=== PATIENT | female | born 1945 | race American Indian/Alaskan Native ===

== ENCOUNTER 2016-05-31 04:22 | Inpatient (IN) | payer MEDICARE ==
[2016-05-30 14:42] LABS: ASPARTATE AMINO TRANSFERASE 11 U/L (15-37); BLOOD UREA NITROGEN 11 mg/dL (7-18)
[~2016-05-31] VITALS: Ht 165.1 cm; Wt 71.7 kg
[~2016-05-31 04:22] MED LIST: ASPI-496 PO; ATOR40TA PO; GABA300C10 PO; HYDR-3138 PO; LISI40TA PO; METF500T4 PO; METO25TA35 PO
[2016-05-31] MEDS ORDERED: ALBUMIN HUMAN 5% 500 ML IV ONE (04:30)
[2016-05-31] MEDS ORDERED: METOPROLOL TARTRATE 25 MG TABLET PO ONE (05:00)
[2016-05-31] MEDS ORDERED: CHLORHEXIDINE MOUTHWASH 15 ML UDC MM SCH (05:00)
[2016-05-31] MEDS ORDERED: DO NOT GIVE MC SCH (05:00)
[2016-05-31] MEDS ORDERED: DO NOT GIVE XX SCH (05:00)
[2016-05-31] MEDS: MUPIROCIN OINT 2%, 22GM TP SCH ×2 (05:47→20:53)
[2016-05-31] MEDS ORDERED: INSULIN ASPART 100 UNITS/ML, PEN SQ-INSULIN SCH (06:00)
[2016-05-31 06:06] VITALS: BP_SYST 143; BP_SYST 154; BP_DIAS 85; BP_DIAS 87
[2016-05-31 07:07] VITALS: BP 134/80
[2016-05-31] MEDS ORDERED: MIDAZOLAM 10MG/2 ML ONE (07:20)
[2016-05-31] MEDS ORDERED: FENTANYL PF 1000 MCG/20ML ONE (07:20)
[2016-05-31] MEDS ORDERED: DEXMEDETOMIDINE 200 MCG in SODIUM CHLORIDE 0.9% 48 ML IV SCH (07:30)
[2016-05-31] MEDS ORDERED: VANCOMYCIN 1,100 MG in SODIUM CHLORIDE 0.9% 250 ML IV PRN (07:30)
[2016-05-31] MEDS ORDERED: REGULAR INSULIN 62.5 UNITS in SODIUM CHLORIDE 0.9% 249.375 ML IV PRN (07:30)
[2016-05-31] MEDS ORDERED: EPINEPHRINE 2 MG in SODIUM CHLORIDE 0.9% 248 ML IV SCH (07:30)
[2016-05-31] MEDS ORDERED: MANNITOL PMX 20% 500 ML IVPB PRN (07:30)
[2016-05-31] MEDS ORDERED: CEFUROXIME 1.5 GM in SODIUM CHLORIDE 0.9% 50 ML IVPB PRN (07:30)
[2016-05-31] MEDS ORDERED: POTASSIUM CHLORIDE 80 MEQ, SODIUM BICARBONATE 8.4% 10 MEQ, MAGNESIUM SULFATE 0.5 GM, LI... IV PRN (07:30)
[2016-05-31] MEDS ORDERED: PHENYLEPHRINE 10 MG in SODIUM CHLORIDE 0.9% 249 ML IV PRN ×2 (07:30→11:23)
[2016-05-31] MEDS ORDERED: ROCURONIUM 10 MG/ML ONE (08:06)
[2016-05-31] MEDS: SODIUM CHLORIDE FLUSH 10ML SYR IVF SCH ×3 (09:00→20:53)
[2016-05-31] MEDS ORDERED: HEPARIN 1,000 UNITS/ML, 10ML IV ONE (09:18)
[2016-05-31] MEDS ORDERED: PAPAVERINE 30 MG/ML, 2ML IVPush ONE (09:36)
[2016-05-31] MEDS ORDERED: SODIUM CHLORIDE 0.9% 1,000 ML IV PRN (11:23)
[2016-05-31] MEDS ORDERED: SODIUM CHLORIDE 0.9% 1,000 ML IV ONE (11:23)
[2016-05-31] MEDS ORDERED: NITROGLYCERIN/D5W PMX 250 ML IV PRN (11:23)
[2016-05-31] MEDS ORDERED: DEXMEDETOMIDINE 200 MCG in SODIUM CHLORIDE 0.9% 48 ML IV PRN (11:23)
[2016-05-31] MEDS ORDERED: DOBUTAMINE 250 MG in SODIUM CHLORIDE 0.9% 230 ML IV PRN (11:23)
[2016-05-31] MEDS ORDERED: MIDAZOLAM 1 MG/ML, 5ML IVPush PRN (11:30)
[2016-05-31] MEDS ORDERED: EPINEPHRINE 2 MG in SODIUM CHLORIDE 0.9% 248 ML IV PRN (11:30)
[2016-05-31] MEDS ORDERED: ACETAMINOPHEN 325 MG TABLET PO PRN (11:30)
[2016-05-31] MEDS ORDERED: DEXTROSE 4 GM TAB.CHEW PO PRN (11:30)
[2016-05-31] MEDS ORDERED: SODIUM BICARB 8.4%, 50ML SYRINGE IV PRN (11:30)
[2016-05-31] MEDS ORDERED: BISACODYL 10 MG SUPP PR PRN (11:30)
[2016-05-31] MEDS ORDERED: LACTATED RINGERS 500 ML IVBOLUS PRN (11:30)
[2016-05-31] MEDS ORDERED: GLUCAGON 1 MG IM PRN (11:30)
[2016-05-31] MEDS ORDERED: DEXTROSE 50%, 50ML SYRINGE IVPush PRN (11:30)
[2016-05-31] MEDS ORDERED: PROCHLORPERAZINE 5 MG/ML, 2ML IVPush PRN (11:30)
[2016-05-31] MEDS: KSCALE TO 4.5 IV SCH ×3 (11:30→23:30)
[2016-05-31] MEDS ORDERED: MEPERIDINE/PF 25MG/0.5ML IVPush PRN (11:30)
[2016-05-31] MEDS ORDERED: ACETAMINOPHEN 650 MG SUPP PR PRN (11:30)
[2016-05-31] MEDS ORDERED: BISACODYL 5 MG EC TABLET PO PRN (11:30)
[2016-05-31 11:58] LABS: ABG COLLECTION SITE ARTERIAL LINE
[2016-05-31] MEDS: morphine SULFATE 10 MG/ML, 1ML IVPush PRN ×3 (12:13→17:52)
[2016-05-31] MEDS ORDERED: ALBUMIN HUMAN 25% 50 ML ONE (12:18)
[2016-05-31] MEDS ORDERED: SODIUM BICARB 8.4%, 50ML SYRINGE ONE (12:18)
[2016-05-31] MEDS ORDERED: HEPARIN 1,000 UNITS/ML, 30ML ONE (12:19)
[2016-05-31] MEDS ORDERED: LIDOCAINE 2% 100MG/5ML SYRINGE ONE (12:19)
[2016-05-31] MEDS ORDERED: methylPREDNISolone SOD SUCC 125 MG/2 ML ONE (12:19)
[2016-05-31] MEDS ORDERED: PAPAVERINE 30 MG/ML, 2ML ONE (12:19)
[2016-05-31] MEDS ORDERED: HEPARIN 1,000 UNITS/ML, 10ML ONE (12:20)
[2016-05-31] MEDS: CLEVIDIPINE 50 ML IV PRN ×5 (12:52→22:34)
[2016-05-31] MEDS ORDERED: POTASSIUM CHLORIDE PMX 100 ML IV ONE (13:00)
[2016-05-31] MEDS ORDERED: SODIUM BICARBONATE 1 MEQ/ML, 50ML VIAL IV PRN (14:18)
[2016-05-31] MEDS: REGULAR INSULIN 62.5 UNITS in SODIUM CHLORIDE 0.9% 249.375 ML IV PRN ×2 (15:54→20:45)
[2016-05-31] MEDS: OXYcodone IR 5MG TABLET PO PRN ×2 (16:30→20:52)
[2016-05-31] MEDS: MAGNESIUM SULFATE 1 GM in SODIUM CHLORIDE 0.9% 50 ML IVPB SCH (16:50)
[2016-05-31] MEDS: ONDANSETRON 2MG/ML, 2ML IVPush PRN (17:02)
[2016-05-31] MEDS ORDERED: MORPHINE SULFATE 4 MG/ML, 1ML ONE (17:50)
[2016-05-31] MEDS: HYDROcodone/APAP 10/325 MG TABLET PO PRN ×2 (18:49→23:53)
[2016-05-31] MEDS ORDERED: POTASSIUM CHLORIDE 30 MEQ in SODIUM CHLORIDE 0.9% 100 ML IV ONE (19:00)
[2016-05-31] MEDS: CEFUROXIME 1.5 GM in SODIUM CHLORIDE 0.9% 50 ML IVPB SCH (19:05)
[2016-05-31] MEDS: VANCOMYCIN 1,100 MG in SODIUM CHLORIDE 0.9% 250 ML IVPB SCH (20:03)
[2016-05-31] MEDS: MUPIROCIN OINT 2%, 22GM NAS SCH (20:53)
[2016-06-01] MEDS: CLEVIDIPINE 50 ML IV PRN ×5 (00:22→10:28)
[2016-06-01] MEDS ORDERED: POTASSIUM CHLORIDE PMX 100 ML IV ONE (00:30)
[2016-06-01] MEDS: ONDANSETRON 2MG/ML, 2ML IVPush PRN (02:13)
[2016-06-01] MEDS: REGULAR INSULIN 62.5 UNITS in SODIUM CHLORIDE 0.9% 249.375 ML IV PRN (03:10)
[2016-06-01 04:00] VITALS: BP 113/63
[2016-06-01 04:29] LABS: ABG COLLECTION SITE RIGHT BRACHIAL; COLLATERAL CIRCULATION TESTING NORMAL
[2016-06-01 06:01] LABS: BLOOD UREA NITROGEN 14 mg/dL (7-18)
[2016-06-01] MEDS: KSCALE TO 4.5 IV SCH (06:38)
[2016-06-01] MEDS: CEFUROXIME 1.5 GM in SODIUM CHLORIDE 0.9% 50 ML IVPB SCH (08:52)
[2016-06-01] MEDS: INSULIN ASPART 100 UNITS/ML, PEN SQ-INSULIN PRN ×3 (08:59→20:39)
[2016-06-01] MEDS: METOPROLOL TARTRATE 25 MG TABLET PO/NG SCH ×2 (09:00→20:42)
[2016-06-01] MEDS ORDERED: LISINOPRIL 10 MG TABLET PO SCH (09:00)
[2016-06-01] MEDS: SODIUM CHLORIDE FLUSH 10ML SYR IVF SCH ×2 (09:00→20:42)
[2016-06-01] MEDS: VANCOMYCIN 1,100 MG in SODIUM CHLORIDE 0.9% 250 ML IVPB SCH (10:27)
[2016-06-01] MEDS: PANTOPRAZOLE 40 MG IV IVPush SCH (12:28)
[2016-06-01] MEDS: FUROSEMIDE 20 MG/2 ML IV SCH (12:28)
[2016-06-01] MEDS: MAGNESIUM SULFATE 1 GM in SODIUM CHLORIDE 0.9% 50 ML IVPB SCH (12:28)
[2016-06-01] MEDS: GABAPENTIN 300 MG CAPSULE PO SCH ×3 (13:23→20:41)
[2016-06-01] MEDS: POTASSIUM CHLORIDE 10 MEQ TABLET.ER PO SCH (13:23)
[2016-06-01] MEDS: DOCUSATE 100 MG CAPSULE PO SCH ×2 (13:23→20:42)
[2016-06-01] MEDS: CHLORHEXIDINE MOUTHWASH 15 ML UDC MM SCH (13:24)
[2016-06-01] MEDS: ASPIRIN 81 MG TABLET EC PO SCH (13:24)
[2016-06-01] MEDS: MUPIROCIN OINT 2%, 22GM NAS SCH ×2 (13:24→20:40)
[2016-06-01] MEDS: HYDROcodone/APAP 10/325 MG TABLET PO PRN ×2 (13:28→20:39)
[2016-06-01 17:17] LABS: PATH.CAST-FLAG NOT PRESENT; SPERM-FLAG NOT PRESENT; SRC-FLAG NOT PRESENT; XTAL-FLAG NOT PRESENT; YLC-FLAG NOT PRESENT
[2016-06-01] MEDS: CLEVIDIPINE 100 ML IV PRN (23:26)
[2016-06-02] MEDS: CHLORHEXIDINE MOUTHWASH 15 ML UDC MM SCH ×2 (00:01→11:24)
[2016-06-02] MEDS: HYDROcodone/APAP 10/325 MG TABLET PO PRN ×5 (00:45→20:35)
[2016-06-02] MEDS: INSULIN ASPART 100 UNITS/ML, PEN SQ-INSULIN PRN ×5 (00:48→20:40)
[2016-06-02 04:00] VITALS: BP 124/66
[2016-06-02 05:50] LABS: BLOOD UREA NITROGEN 11 mg/dL (7-18)
[2016-06-02] MEDS: CLEVIDIPINE 100 ML IV PRN (06:23)
[2016-06-02] MEDS ORDERED: INSULIN DETEMIR 100 UNITS/ML, PEN SQ-INSULIN SCH (08:30)
[2016-06-02] MEDS ORDERED: MAGNESIUM HYDROXIDE 8%, 30ML UDC PO PRN (08:30)
[2016-06-02] MEDS: SODIUM CHLORIDE FLUSH 10ML SYR IVF SCH ×3 (09:03→20:33)
[2016-06-02] MEDS: LISINOPRIL 20 MG TABLET PO SCH ×2 (09:04→18:18)
[2016-06-02] MEDS: METOPROLOL TARTRATE 25 MG TABLET PO/NG SCH ×2 (09:04→20:36)
[2016-06-02] MEDS: ENOXAPARIN 40 MG/0.4 ML SQ SCH (09:04)
[2016-06-02] MEDS: AMLODIPINE 5 MG TABLET PO SCH (09:04)
[2016-06-02] MEDS: GABAPENTIN 300 MG CAPSULE PO SCH ×3 (09:05→20:35)
[2016-06-02] MEDS: PANTOPRAZOLE 40 MG IV IVPush SCH (09:05)
[2016-06-02] MEDS: ASPIRIN 81 MG TABLET EC PO SCH (09:05)
[2016-06-02] MEDS: POTASSIUM CHLORIDE 10 MEQ TABLET.ER PO SCH (09:05)
[2016-06-02] MEDS: DOCUSATE 100 MG CAPSULE PO SCH ×2 (09:05→20:35)
[2016-06-02] MEDS: metFORMIN 500 MG TABLET PO SCH ×2 (09:05→18:29)
[2016-06-02] MEDS: MUPIROCIN OINT 2%, 22GM NAS SCH ×2 (09:06→20:33)
[2016-06-02] MEDS: FUROSEMIDE 20 MG/2 ML IV SCH (09:06)
[2016-06-02] MEDS: MAGNESIUM SULFATE 1 GM in SODIUM CHLORIDE 0.9% 50 ML IVPB SCH (11:21)
[2016-06-02] MEDS ORDERED: AMLODIPINE 5 MG TABLET PO ONE (18:30)
[2016-06-02] MEDS: ATORVASTATIN 40 MG TABLET PO SCH (20:36)
[2016-06-03] MEDS: CHLORHEXIDINE MOUTHWASH 15 ML UDC MM SCH (00:51)
[2016-06-03] MEDS: HYDROcodone/APAP 10/325 MG TABLET PO PRN ×4 (01:01→22:33)
[2016-06-03 03:24] VITALS: BP 151/83
[2016-06-03 04:40] LABS: BLOOD UREA NITROGEN 9 mg/dL (7-18)
[2016-06-03] MEDS: INSULIN ASPART 100 UNITS/ML, PEN SQ-INSULIN PRN ×4 (05:45→17:19)
[2016-06-03 07:10] VITALS: BP 148/83
[2016-06-03] MEDS: POTASSIUM CHLORIDE 10 MEQ TABLET.ER PO SCH (08:00)
[2016-06-03] MEDS: SODIUM CHLORIDE FLUSH 10ML SYR IVF SCH ×4 (09:00→20:31)
[2016-06-03] MEDS: ENOXAPARIN 40 MG/0.4 ML SQ SCH (09:42)
[2016-06-03] MEDS: FUROSEMIDE 20 MG/2 ML IV SCH (09:42)
[2016-06-03] MEDS: PANTOPRAZOLE 40 MG IV IVPush SCH (09:42)
[2016-06-03] MEDS: LISINOPRIL 20 MG TABLET PO SCH ×2 (09:43→20:30)
[2016-06-03] MEDS: ASPIRIN 81 MG TABLET EC PO SCH (09:43)
[2016-06-03] MEDS: GABAPENTIN 300 MG CAPSULE PO SCH ×3 (09:43→20:29)
[2016-06-03] MEDS: metFORMIN 500 MG TABLET PO SCH ×2 (09:43→17:18)
[2016-06-03] MEDS: METOPROLOL TARTRATE 25 MG TABLET PO/NG SCH ×2 (09:43→20:30)
[2016-06-03] MEDS: CLOPIDOGREL 75 MG TABLET PO SCH (09:43)
[2016-06-03] MEDS: DOCUSATE 100 MG CAPSULE PO SCH ×2 (09:43→20:30)
[2016-06-03] MEDS: AMLODIPINE 5 MG TABLET PO SCH (09:43)
[2016-06-03] MEDS: MUPIROCIN OINT 2%, 22GM NAS SCH ×2 (09:44→20:31)
[2016-06-03] MEDS: POTASSIUM CHLORIDE 20 MEQ TAB.ER.PRT PO SCH (09:45)
[2016-06-03] MEDS ORDERED: SODIUM BICARBONATE 4.2%, 5ML ONE (10:22)
[2016-06-03] MEDS ORDERED: LIDOCAINE 1%, 20ML ONE (10:22)
[2016-06-03 14:07] VITALS: BP 110/69
[2016-06-03 20:01] VITALS: BP 138/79
[2016-06-03] MEDS: ATORVASTATIN 40 MG TABLET PO SCH (20:30)
[2016-06-03] MEDS: INSULIN ASPART 100 UNITS/ML, PEN SQ-INSULIN SCH (20:32)
[2016-06-04 01:26] VITALS: BP 155/91
[2016-06-04] MEDS: HYDROcodone/APAP 10/325 MG TABLET PO PRN ×4 (04:28→21:36)
[2016-06-04 06:22] LABS: BLOOD UREA NITROGEN 8 mg/dL (7-18)
[2016-06-04] MEDS: INSULIN ASPART 100 UNITS/ML, PEN SQ-INSULIN SCH ×4 (07:00→21:41)
[2016-06-04 07:02] VITALS: BP 150/87
[2016-06-04] MEDS ORDERED: POTASSIUM CHLORIDE 10 MEQ TABLET.ER PO SCH (08:00)
[2016-06-04] MEDS: FUROSEMIDE 20 MG/2 ML IV SCH (08:59)
[2016-06-04] MEDS: LISINOPRIL 20 MG TABLET PO SCH ×2 (08:59→21:38)
[2016-06-04] MEDS: DOCUSATE 100 MG CAPSULE PO SCH ×2 (08:59→21:38)
[2016-06-04] MEDS: ENOXAPARIN 40 MG/0.4 ML SQ SCH (08:59)
[2016-06-04] MEDS: METOPROLOL TARTRATE 25 MG TABLET PO/NG SCH ×2 (09:00→21:39)
[2016-06-04] MEDS: metFORMIN 500 MG TABLET PO SCH ×2 (09:00→16:35)
[2016-06-04] MEDS: PANTOPROZOLE 40MG TABLET PO SCH (09:00)
[2016-06-04] MEDS: CLOPIDOGREL 75 MG TABLET PO SCH (09:00)
[2016-06-04] MEDS: ASPIRIN 81 MG TABLET EC PO SCH (09:00)
[2016-06-04] MEDS: AMLODIPINE 5 MG TABLET PO SCH (09:00)
[2016-06-04] MEDS: GABAPENTIN 300 MG CAPSULE PO SCH ×3 (09:00→21:38)
[2016-06-04] MEDS: POTASSIUM CHLORIDE 20 MEQ TAB.ER.PRT PO SCH (09:00)
[2016-06-04] MEDS: SODIUM CHLORIDE FLUSH 10ML SYR IVF SCH ×4 (09:00→21:36)
[2016-06-04] MEDS: MUPIROCIN OINT 2%, 22GM NAS SCH ×2 (09:00→21:00)
[2016-06-04 14:51] VITALS: BP 145/82
[2016-06-04 21:09] VITALS: BP 148/83
[2016-06-04] MEDS: ATORVASTATIN 40 MG TABLET PO SCH (21:38)
[2016-06-05 01:30] VITALS: BP 143/87
[2016-06-05 06:01] LABS: BLOOD UREA NITROGEN 7 mg/dL (7-18)
[2016-06-05 06:45] VITALS: BP 155/89
[2016-06-05] MEDS ORDERED: POTASSIUM CHLORIDE 20 MEQ TAB.ER.PRT PO ONE (08:30)
[2016-06-05] MEDS ORDERED: POTA20TA6 PO (08:32)
[2016-06-05] MEDS ORDERED: DOCU-30 PO (08:32)
[2016-06-05] MEDS ORDERED: CLOP75TA PO (08:32)
[2016-06-05] MEDS ORDERED: FURO40TA6 PO (08:32)
[2016-06-05] MEDS ORDERED: AMLO5TAB2 PO (08:32)
[2016-06-05] MEDS ORDERED: METO25TA35 PO/NG (08:32)
[2016-06-05] MEDS: SODIUM CHLORIDE FLUSH 10ML SYR IVF SCH ×2 (09:00→09:22)
[2016-06-05] MEDS: MUPIROCIN OINT 2%, 22GM NAS SCH (09:00)
[2016-06-05] MEDS: INSULIN ASPART 100 UNITS/ML, PEN SQ-INSULIN SCH ×2 (09:19→11:46)
[2016-06-05] MEDS: POTASSIUM CHLORIDE 20 MEQ TAB.ER.PRT PO SCH (09:20)
[2016-06-05] MEDS: FUROSEMIDE 20 MG/2 ML IV SCH (09:20)
[2016-06-05] MEDS: metFORMIN 500 MG TABLET PO SCH (09:20)
[2016-06-05] MEDS: PANTOPROZOLE 40MG TABLET PO SCH (09:20)
[2016-06-05] MEDS: DOCUSATE 100 MG CAPSULE PO SCH (09:20)
[2016-06-05] MEDS: METOPROLOL TARTRATE 25 MG TABLET PO/NG SCH (09:21)
[2016-06-05] MEDS: ASPIRIN 81 MG TABLET EC PO SCH (09:21)
[2016-06-05] MEDS: GABAPENTIN 300 MG CAPSULE PO SCH (09:21)
[2016-06-05] MEDS: AMLODIPINE 5 MG TABLET PO SCH (09:21)
[2016-06-05] MEDS: LISINOPRIL 20 MG TABLET PO SCH (09:21)
[2016-06-05] MEDS: CLOPIDOGREL 75 MG TABLET PO SCH (09:21)
[2016-06-05] MEDS: ENOXAPARIN 40 MG/0.4 ML SQ SCH (09:22)
[2016-06-05] MEDS: HYDROcodone/APAP 10/325 MG TABLET PO PRN (11:52)
== END 2016-06-05 14:00 | disposition home health service (06) | DRG 235 ==
LOC: 5SO 04:22 → CCU 09:26 → 5SO 06-03 06:00 → DCLOUNGE 06-05 12:48
PROVIDERS: ADMIT Thoracic Surgery (Cardiothoracic Vascular Surgery); ATTEND Thoracic Surgery (Cardiothoracic Vascular Surgery)
PROC: 021009W Bypass Coronary Artery, One Artery from Aorta with Autologous Venous Tissue, Open Approach (ICD-10-PCS; 2016-05-31)
PROC: 06BP4ZZ Excision of Right Saphenous Vein, Percutaneous Endoscopic Approach (ICD-10-PCS; 2016-05-31)
PROC: 02100Z9 Bypass Coronary Artery, One Artery from Left Internal Mammary, Open Approach (ICD-10-PCS; 2016-05-31)
PROC: B246ZZ4 Ultrasonography of Right and Left Heart, Transesophageal (ICD-10-PCS; 2016-05-31)
PROC: 5A1221Z Performance of Cardiac Output, Continuous (ICD-10-PCS; 2016-05-31)
PROC: 0T9B70Z Drainage of Bladder with Drainage Device, Via Natural or Artificial Opening (ICD-10-PCS; principal; 2016-06-01)
PROC: 0W9B3ZZ Drainage of Left Pleural Cavity, Percutaneous Approach (ICD-10-PCS; 2016-06-03)
DX: I25.119 Atherosclerotic heart disease of native coronary artery with unspecified angina pectoris (principal); J18.9 Pneumonia, unspecified organism; J90 Pleural effusion, not elsewhere classified; J98.11 Atelectasis; E11.9 Type 2 diabetes mellitus without complications; E66.9 Obesity, unspecified; E78.00 Pure hypercholesterolemia, unspecified; E78.5 Hyperlipidemia, unspecified; I10 Essential (primary) hypertension; I25.5 Ischemic cardiomyopathy; Z82.49 Family history of ischemic heart disease and other diseases of the circulatory system; Z83.3 Family history of diabetes mellitus; Z95.1 Presence of aortocoronary bypass graft; Z90.710 Acquired absence of both cervix and uterus; Z68.26 Body mass index [BMI] 26.0-26.9, adult; R06.89 Other abnormalities of breathing
CPT/HCPCS: 32555; 36415; 36600; 71010; 71020; 80048; 80053; 81001; 81003; 82040; 82330; 82800; 82803; 82810; 82947; 82962; 83036; 83735; 84132; 84295; 85014; 85018; 85025; 85049; 85347; 85610; 85730; 86850; 86870; 86900; 86902; 86922; 86923; 87081; 87086; 93005; 93312; 93321; 93325; 93970; 94002; J0697; J1644; J1650; J1815; J2250; J2405; J3010; J3370; J3475; J3480; J3490; P9045; P9047; C1751; C1760; C9113; C9248; J0171; J1940; J2270; J2370; J2440; J2930; J7050